=== PATIENT | female | born 1990 | race Two or more races ===

== ENCOUNTER 2019-11-23 11:58 | Emergency (ER) | payer BC ==
[~2019-11-23] VITALS: Ht 162.6 cm; Wt 83.9 kg
[2019-11-23 12:23] VITALS: BP 107/66
[2019-11-23 13:45] LABS: Urine Bacteria FEW /hpf (None Seen); Urine Blood Negative /uL (Negative); Urine Hyaline Cast FEW /lpf (0 - 2); Urine Mucus FEW (None Seen); Urine Specific Gravity 1.018 (1.001-1.035); Urine WBC 2 /hpf (0 - 5)
[2019-11-23] MEDS ORDERED: KETOROLAC TROMETH 60MG/2ML VIAL IM ONE (15:15)
== END 2019-11-23 15:56 | disposition home or self-care (01) ==
LOC: ER 11:58
DX: S76.012A Strain of muscle, fascia and tendon of left hip, initial encounter (principal); S76.011A Strain of muscle, fascia and tendon of right hip, initial encounter; S76.912A Strain of unspecified muscles, fascia and tendons at thigh level, left thigh, initial encounter; X58.XXXA Exposure to other specified factors, initial encounter; Y93.89 Activity, other specified; Y92.89 Other specified places as the place of occurrence of the external cause; Y99.8 Other external cause status
CPT/HCPCS: 36415; 73502; 81001; 81025; 84702; 96372; 99284; J1885

== ENCOUNTER 2019-12-30 09:34 | Emergency (ER) | payer SELFPAY ==
[~2019-12-30] VITALS: Ht 162.6 cm; Wt 85.3 kg
[2019-12-30] MEDS ORDERED: SODIUM CHLORIDE 0.9% 1,000 ML IVB ONE (10:00)
[2019-12-30 10:33] LABS: Eosinophils # (auto) 0.1 10 ^3/uL (0-0.8); Eosinophils % (auto) 0.9 % (0.0-7.0); Hemoglobin 13.6 g/dL (12.2-16.2); Mean Corpuscular Volume 79.1 fL (80.0-100.0); Monocytes # (auto) 0.4 10 ^3/uL (0-1.3); Neutrophils # (auto) 4.4 10 ^3/uL (1.6-8.6); Nucleated Red Blood Cells % 0.1 %
[2019-12-30 10:35] LABS: Basophils # (auto) 0 10 ^3/uL (0-0.2); Basophils % (auto) 0.6 % (0.0-2.0); Hematocrit 42.1 % (36.0-46.0); Lymphocytes # (auto) 2.3 10 ^3/uL (0.4-5.4); Lymphocytes % (auto) 32.2 % (10.0-50.0); Mean Corpuscular Hemoglobin 25.6 pg (28.0-32.0); Mean Corpuscular Hgb Conc. 32.4 g/dL (32.0-36.0); Monocytes % (auto) 5.9 % (0.0-12.0); Neutrophils % (auto) 60.4 % (37.0-80.0); Platelet Count (auto) 403 10^3/uL (140-450); Red Blood Cells 5.32 10^6/uL (4.0-5.20); Red Cell Distribution Width 14.8 % (11.8-14.3); White Blood Cell 7.3 10^3/uL (4.4-10.8)
[2019-12-30 10:54] LABS: Albumin 3.7 g/dL (3.4-5.0); Calcium 9.1 mg/dL (8.5-10.1); Potassium 3.9 mmol/L (3.5-5.1)
[2019-12-30 10:59] LABS: BUN/Creatinine Ratio 10.5; Bilirubin, Total 0.3 mg/dL (0.2-1.0); Total Protein 7.9 g/dL (6.4-8.2)
[2019-12-30 11:14] LABS: INR 0.92 (0.9-1.15); Partial Thromboplastin Time 27.3 sec (23.0-31.2)
[2019-12-30 15:00] VITALS: BP 113/71
== END 2019-12-30 15:46 | disposition home or self-care (01) ==
LOC: ER 09:34
DX: R55 Syncope and collapse (principal); N93.9 Abnormal uterine and vaginal bleeding, unspecified
CPT/HCPCS: 36415; 80053; 84702; 85025; 85610; 85730; 96360; 99283; J7030

== ENCOUNTER 2021-03-04 09:39 | Emergency (ER) | payer MEDICAID ==
[~2021-03-04] VITALS: Ht 162.6 cm; Wt 84.8 kg
[2021-03-04 10:33] LABS: Urine Bacteria FEW /hpf (None Seen); Urine Blood Negative /uL (Negative); Urine Specific Gravity 1.002 (1.001-1.035); Urine WBC 1 /hpf (0 - 5)
[2021-03-04 11:10] LABS: Basophils # (auto) 0 10 ^3/uL (0-0.2); Basophils % (auto) 0.4 % (0.0-2.0); Eosinophils # (auto) 0 10 ^3/uL (0-0.8); Monocytes # (auto) 0.5 10 ^3/uL (0-1.3); Neutrophils # (auto) 6.8 10 ^3/uL (1.6-8.6); White Blood Cell 8.6 10^3/uL (4.4-10.8)
[2021-03-04 11:12] LABS: Eosinophils % (auto) 0.6 % (0.0-7.0); Hematocrit 40.2 % (36.0-46.0); Hemoglobin 13.7 g/dL (12.2-16.2); Lymphocytes # (auto) 1.3 10 ^3/uL (0.4-5.4); Lymphocytes % (auto) 14.7 % (10.0-50.0); Mean Corpuscular Hemoglobin 27.1 pg (28.0-32.0); Mean Corpuscular Volume 79.8 fL (80.0-100.0); Monocytes % (auto) 5.5 % (0.0-12.0); Neutrophils % (auto) 78.8 % (37.0-80.0); Nucleated Red Blood Cells % 0.2 %; Red Blood Cells 5.04 10^6/uL (4.0-5.20)
[2021-03-04 11:33] LABS: Albumin 3.5 g/dL (3.4-5.0); Calcium 9.1 mg/dL (8.5-10.1); Potassium 3.9 mmol/L (3.5-5.1)
[2021-03-04 11:36] LABS: BUN/Creatinine Ratio 6.2; Bilirubin, Total 0.3 mg/dL (0.2-1.0); Total Protein 7.8 g/dL (6.4-8.2)
[2021-03-04 12:18] VITALS: BP 109/63
== END 2021-03-04 12:26 | disposition home or self-care (01) ==
LOC: ER 09:39
DX: O20.8 Other hemorrhage in early pregnancy (principal); Z3A.10 10 weeks gestation of pregnancy
CPT/HCPCS: 36415; 76801; 80053; 81001; 84702; 85025

== ENCOUNTER 2022-03-13 12:35 | Emergency (ER) | payer MEDICAID ==
[~2022-03-13] VITALS: Ht 160 cm; Wt 81.5 kg
[2022-03-13] MEDS ORDERED: PANTOPRAZOLE 40 MG TAB PO ONE (13:00)
[2022-03-13 13:26] LABS: Basophils # (auto) 0 10 ^3/uL (0-0.2); Eosinophils # (auto) 0.2 10 ^3/uL (0-0.8); Lymphocytes # (auto) 2.6 10 ^3/uL (0.4-5.4); Mean Corpuscular Volume 77.6 fL (80.0-100.0); White Blood Cell 10.1 10^3/uL (4.4-10.8)
[2022-03-13 13:28] LABS: Basophils % (auto) 0.4 % (0.0-2.0); Eosinophils % (auto) 1.7 % (0.0-7.0); Hematocrit 41.4 % (36.0-46.0); Hemoglobin 13.6 g/dL (12.2-16.2); Lymphocytes % (auto) 25.5 % (10.0-50.0); Mean Corpuscular Hemoglobin 25.5 pg (28.0-32.0); Mean Corpuscular Hgb Conc. 32.8 g/dL (32.0-36.0); Monocytes # (auto) 0.8 10 ^3/uL (0-1.3); Monocytes % (auto) 7.9 % (0.0-12.0); Neutrophils # (auto) 6.5 10 ^3/uL (1.6-8.6); Neutrophils % (auto) 64.5 % (37.0-80.0); Nucleated Red Blood Cells % 0.1 %; Red Blood Cells 5.33 10^6/uL (4.0-5.20); Red Cell Distribution Width 15.3 % (11.8-14.3)
[2022-03-13 13:39] LABS: Albumin 4.3 g/dL (3.4-5.0); Potassium 4.3 mmol/L (3.5-5.1)
[2022-03-13 13:42] LABS: BUN/Creatinine Ratio 20.5; Bilirubin, Total 0.4 mg/dL (0.2-1.0); Total Protein 7.8 g/dL (6.4-8.2)
[2022-03-13 13:56] LABS: Urine Bacteria FEW /hpf (None Seen); Urine Blood Negative /uL (Negative); Urine Mucus FEW (None Seen); Urine Specific Gravity 1.024 (1.001-1.035); Urine WBC 7 /hpf (0 - 5)
[2022-03-13] MEDS ORDERED: PANT40TA2 PO (14:07)
[2022-03-13] MEDS ORDERED: CIPR-173 PO (14:07)
[2022-03-13 14:19] VITALS: BP 119/50
== END 2022-03-13 14:20 | disposition home or self-care (01) ==
LOC: ER 12:35
DX: K29.70 Gastritis, unspecified, without bleeding (principal); N39.0 Urinary tract infection, site not specified; E11.9 Type 2 diabetes mellitus without complications
CPT/HCPCS: 36415; 76705; 80053; 81001; 83690; 84702; 85025